=== PATIENT | female | born 1940 | race Caucasian/White ===

== ENCOUNTER 2025-01-02 15:31 | Inpatient (IN) | payer MEDICARE, BC ==
[~2025-01-02] VITALS: Ht 167.6 cm; Wt 105.7 kg
[2025-01-02] MEDS ORDERED: DOXA4TAB3 PO (15:57)
[2025-01-02] MEDS ORDERED: FOLI1TAB94 PO (15:57)
[2025-01-02] MEDS ORDERED: DULO30CA2 PO (15:57)
[2025-01-02] MEDS ORDERED: PRAV80TA21 PO (15:57)
[2025-01-02] MEDS ORDERED: POTA-10 PO (15:57)
[2025-01-02] MEDS ORDERED: DOCU-286 PO (15:57)
[2025-01-02] MEDS ORDERED: TRAZ-257 PO (15:57)
[2025-01-02] MEDS ORDERED: DULO60CA45 PO (15:57)
[2025-01-02] MEDS ORDERED: FIBER LAXATIVE (15:57)
[2025-01-02] MEDS ORDERED: GABA300C PO (15:57)
[2025-01-02] MEDS ORDERED: METH-807 PO (15:57)
[2025-01-02] MEDS ORDERED: OXYC10TA49 PO (15:57)
[2025-01-02] MEDS ORDERED: VITAMIN B12 (15:57)
[2025-01-02] MEDS ORDERED: ZINC1CAP3 PO (15:57)
[2025-01-02] MEDS ORDERED: VITAMIN D3 (15:57)
[2025-01-02] MEDS ORDERED: FERR325T28 PO (15:57)
[2025-01-02] MEDS ORDERED: BIOT5000 PO (15:57)
[2025-01-02] MEDS ORDERED: SENN8.6T19 PO (15:57)
[2025-01-02] MEDS ORDERED: TRIA1CAP6 PO (15:57)
[2025-01-02] MEDS ORDERED: ASCO500C18 PO (15:57)
[2025-01-02] MEDS ORDERED: METF-494 PO (15:57)
[2025-01-02 16:20] LABS: PLATELET COUNT (AUTO) 271 K/uL (179-408); RED BLOOD CELL COUNT(AUTO) 4.14 MIL/uL (3.63-4.92); RED CELL DISTRIBUTION WIDTH 12.5 % (12.3-17.7); WHITE BLOOD COUNT (AUTO) 12.1 K/uL (3.8-11.8)
[2025-01-02 16:28] LABS: CREATININE 1.4 mg/dL (0.6-1.3); SODIUM SERUM 124 mmol/L (136-145); UREA NITROGEN, BLOOD 15 mg/dL (7-18)
[2025-01-02] MEDS ORDERED: HALOPERIDOL LACTATE 5 MG/1 ML VIAL ONE (16:32)
[2025-01-02] MEDS ORDERED: diphenhydrAMINE 50 MG/1 ML VIAL ONE (16:32)
[2025-01-02 16:34] LABS: ASPARTATE AMINOTRANSFERASE 16 U/L (15-37); TOTAL PROTEIN, SERUM 6.9 g/dL (6.4-8.2)
[2025-01-02] MEDS: diphenhydrAMINE 50 MG/1 ML VIAL IM ONE (16:40)
[2025-01-02] MEDS: HALOPERIDOL LACTATE 5 MG/1 ML VIAL IM ONE (16:40)
[2025-01-02] MEDS ORDERED: CEFTRIAXONE /D5W 50ML IVPB **ER PYXIS IV ONE (16:42)
[2025-01-02] MEDS ORDERED: DEXAMETHASONE SOD PHOSPHATE 4 MG INJ ONE (16:42)
[2025-01-02] MEDS: DEXAMETHASONE SOD PHOSPHATE 4 MG INJ IV ONE (16:55)
[2025-01-02] MEDS: IV NORMAL SALINE 1000 ML BAG IV ONE (16:55)
[2025-01-02] MEDS ORDERED: ONDANSETRON 4 MG/2 ML VIAL IV ONE (17:00)
[2025-01-02] MEDS ORDERED: HYDROMORPHONE 1 MG/1 ML DISP.SYRIN IV ONE (17:00)
[2025-01-02] MEDS ORDERED: LORAZEPAM 2 MG/1 ML VIAL ONE (17:01)
[2025-01-02] MEDS: LORAZEPAM 2 MG/1 ML VIAL IM ONE (17:08)
[2025-01-02] MEDS ORDERED: ZIPRASIDONE MESYLATE 20 MG VIAL IM ONE (17:58)
[2025-01-02] MEDS: ZIPRASIDONE MESYLATE 20 MG VIAL IM ONE (18:06)
[2025-01-02 18:41] LABS: *BILIRUBIN,URIN NEGATIVE (NEGATIVE); *CLARITY,URINE CLEAR (CLEAR); *COLOR,URINE YELLOW (YELLOW); *KETONES,URINE NEGATIVE (NEGATIVE); *PROTEIN,URINE NEGATIVE (NEGATIVE); *UROBILINOGEN,URINE 0.2 E.U./dl (NORMAL); LEUKOCYTE ESTERASE ,URINE NEGATIVE (NEGATIVE); NITRITE, URINE NEGATIVE (NEGATIVE); UGLUCOSE NEGATIVE (NEGATIVE)
[2025-01-02 18:43] LABS: *BLOOD, URINE TRACE (NEGATIVE)
[2025-01-02 18:48] LABS: SQUAMOUS EPITHELIAL CELL,UR FEW /HPF (NONE SEEN)
[2025-01-02 19:51] VITALS: BP 141/61
[2025-01-02 20:30] VITALS: BP 190/91; TEMP 99; O2SAT 95
[2025-01-02 21:30] VITALS: BP 144/67
[2025-01-02] MEDS ORDERED: GABAPENTIN 300 MG CAPSULE PO PRN (23:00)
[2025-01-02] MEDS ORDERED: ACETAMINOPHEN 325 MG TABLET PO PRN (23:00)
[2025-01-02] MEDS ORDERED: OXYCODONE HCL 5 MG TABLET PO PRN (23:00)
[2025-01-02] MEDS ORDERED: DEXTROSE 50% 50 ML DISP.SYRIN IV PRN (23:00)
[2025-01-02] MEDS ORDERED: INSULIN REGULAR, HUMAN 1000 UNIT/10 ML VIAL SQ PRN (23:00)
[2025-01-02] MEDS ORDERED: ONDANSETRON 4 MG/2 ML VIAL IV PRN (23:00)
[2025-01-02] MEDS ORDERED: REMEDY ESSENTIAL ZINC PASTE 113 GM TP PRN (23:00)
[2025-01-02] MEDS ORDERED: MAGNESIUM HYDROXIDE 30 ML LIQUID UDC PO PRN (23:00)
[2025-01-02] MEDS: IV NS 1000 ML 1,000 ML IV PRN (23:56)
[2025-01-03] VITALS: BP 164/86; TEMP 97.7; O2SAT 96
[2025-01-03] MEDS: ENOXAPARIN SODIUM 40 MG/0.4 ML DISP.SYRIN SQ STA (00:04)
[2025-01-03] MEDS: BLOOD SUGAR DIAGNOSTIC 1 EACH STRIP VI SCH (06:33)
[2025-01-03 07:34] LABS: PLATELET COUNT (AUTO) 275 K/uL (179-408); RED BLOOD CELL COUNT(AUTO) 3.77 MIL/uL (3.63-4.92); RED CELL DISTRIBUTION WIDTH 12.5 % (12.3-17.7); WHITE BLOOD COUNT (AUTO) 8.8 K/uL (3.8-11.8)
[2025-01-03 07:51] VITALS: BP 137/60; TEMP 97.7; O2SAT 96
[2025-01-03 07:52] LABS: CREATININE 1.2 mg/dL (0.6-1.3); SODIUM SERUM 127 mmol/L (136-145); UREA NITROGEN, BLOOD 17 mg/dL (7-18)
[2025-01-03] MEDS: FERROUS SULFATE 325 MG TABEC PO SCH (08:09)
[2025-01-03] MEDS: FOLIC ACID 1 MG TABLET PO SCH (08:09)
[2025-01-03] MEDS: METFORMIN HCL 500 MG TABLET PO SCH (08:09)
[2025-01-03] MEDS: DULOXETINE 60 MG CAPSULE.DR PO SCH (08:09)
[2025-01-03 10:34] LABS: *SODIUM RNDM,URINE 80 mmol/L (40-220)
[2025-01-03] MEDS ORDERED: POTASSIUM CHLORIDE 20 MEQ TAB.PRT.SR PO ONE (10:45)
[2025-01-03 11:49] VITALS: BP 134/53; TEMP 97.8; O2SAT 97
[2025-01-03] MEDS: MAGNESIUM OXIDE 400 MG TABLET PO ONE ×2 (12:01→13:50)
[2025-01-03] MEDS: POTASSIUM CHLORIDE 20 MEQ TAB.PRT.SR PO ONE (12:01)
[2025-01-03] MEDS ORDERED: MAGNESIUM OXIDE 400 MG TABLET PO SCH (12:30)
[2025-01-03] MEDS ORDERED: DULOXETINE 30 MG CAPSULE.DR PO SCH (21:00)
[2025-01-03] MEDS ORDERED: DOXAZOSIN 2 MG TABLET PO SCH (21:00)
[2025-01-03] MEDS ORDERED: ATORVASTATIN 40 MG TABLET PO SCH (21:00)
[2025-01-03] MEDS ORDERED: ENOXAPARIN SODIUM 40 MG/0.4 ML DISP.SYRIN SQ SCH (21:00)
== END 2025-01-03 16:15 | disposition home or self-care (01) | DRG 948 ==
LOC: ER 15:48 → TELE3 18:17 → MEDSURG3 01-03 12:15
PROVIDERS: ADMIT Nurse Practitioner Acute Care; ATTEND Nurse Practitioner Acute Care
DX: R41.0 Disorientation, unspecified (principal); E83.39 Other disorders of phosphorus metabolism; N17.9 Acute kidney failure, unspecified; F23 Brief psychotic disorder; E11.9 Type 2 diabetes mellitus without complications; I11.9 Hypertensive heart disease without heart failure; E87.1 Hypo-osmolality and hyponatremia; E78.5 Hyperlipidemia, unspecified; E87.6 Hypokalemia; G89.29 Other chronic pain; Z79.84 Long term (current) use of oral hypoglycemic drugs; Z79.899 Other long term (current) drug therapy; T42.8X1A Poisoning by antiparkinsonism drugs and other central muscle-tone depressants, accidental (unintentional), initial encounter; R53.1 Weakness; Y92.9 Unspecified place or not applicable
CPT/HCPCS: 36415; 71045; 83605; 83735; 84100; 84300; 84484; 85025; 85730; 87040; 87086; A4606; A4663; C1758; G0378; J0696; J1100; J1200; J1630; J1650; J1815; J2060; J3486; J7040